=== PATIENT | male | born 1950 | race Native Hawaiian/Other Pacific Islander ===

== ENCOUNTER 2022-03-15 13:03 | Emergency (ER) | payer OTHER ==
[~2022-03-15] VITALS: Ht 177.8 cm; Wt 72.6 kg
[2022-03-15 13:37] LABS: PLATELET COUNT 346 K/uL (142-355)
[2022-03-15 13:46] LABS: POTASSIUM 4.3 mmol/L (3.6-5.2)
[2022-03-15 14:05] LABS: PARTIAL THROMBOPLASTIN TIME 27.2 SECONDS (24.5-33.6)
[2022-03-15 18:08] VITALS: BP 132/55; TEMP 97
== END 2022-03-15 18:08 | disposition short-term general hospital (02) ==
LOC: ED 13:03
PROVIDERS: Family Medicine
DX: J18.9 Pneumonia, unspecified organism (principal); I21.4 Non-ST elevation (NSTEMI) myocardial infarction; I50.9 Heart failure, unspecified; J44.9 Chronic obstructive pulmonary disease, unspecified; I25.2 Old myocardial infarction; F17.210 Nicotine dependence, cigarettes, uncomplicated; Z11.52 Encounter for screening for COVID-19
CPT/HCPCS: 36415; 36600; 80053; 82550; 82805; 83605; 83880; 84484; 85027; 85379; 85610; 85730; 87040; 87077; 87185; 87186; 87205; 87635; 93005; 94660; 94664; 96365; 96375; 99285; J0696; J1940; J2930; Q9963; U0003